=== PATIENT | female | born 1940 | race Caucasian/White ===

== ENCOUNTER 2023-08-14 15:57 | Inpatient (IN) | payer MEDICARE, OTHER ==
[~2023-08-14] VITALS: Ht 170 cm; Wt 63.1 kg
[2023-08-14] MEDS ORDERED: diphenhydrAMINE INJ 50 MG/ML VIAL IVP PRN (16:15)
[2023-08-14] MEDS ORDERED: diphenhydrAMINE 25 MG TABLET PO PRN (16:15)
[2023-08-14] MEDS ORDERED: ACETAMINOPHEN 325 MG TABLET PO PRN (16:15)
[2023-08-14] MEDS ORDERED: MILK OF MAGNESIA 400 MG/5 ML 30 ML UDC PO PRN (16:15)
[2023-08-14] MEDS ORDERED: ONDANSETRON INJECTION 4 MG/2 ML (SDV) IV PRN (16:15)
[2023-08-14] MEDS ORDERED: LORazepam 0.5 MG TABLET PO PRN (16:15)
[2023-08-14] MEDS ORDERED: oxyCODONE IMMEDIATE RELEASE 5 MG TABLET PO PRN (16:15)
[2023-08-14] MEDS ORDERED: BISACODYL 10 MG SUPPOSITORY PR PRN (16:15)
[2023-08-14] MEDS ORDERED: MELATONIN 3 MG TABLET PO PRN (16:15)
[2023-08-14] MEDS ORDERED: ANTACID SUSPENSION 30 ML UDC PO PRN (16:15)
[2023-08-14] MEDS ORDERED: ONDANSETRON 4 MG ORAL DISSOLVE TABLET PO PRN (16:15)
[2023-08-14] MEDS ORDERED: LIDOCAINE UROJET 2% GEL 10 ML PKG TOP ONE (16:15)
[2023-08-14] MEDS ORDERED: LACTULOSE SYRUP 10GM/15ML 30ML UDC PO PRN (16:15)
[2023-08-14] MEDS ORDERED: CALCIUM CARBONATE 500 MG CHEW TABLET PO PRN (16:15)
[2023-08-14] MEDS ORDERED: HALOPERIDOL INJECTION 5 MG/ML VIAL IM PRN (16:15)
--- NOTE | 2023-08-14 16:22 | History & Physical ---
History of Present Illness HPI/Chief Complaint Chief complaint: Left hip fracture HPI: This is an 83-year-old female who I transferred from [facility] where she had been admitted the day before due to increased confusion and agitation with dementia. She has lived with her daughter for 4 years and her dementia had worsened since her cataract surgery. She also had a history of a small stroke 1 week ago. She had remained stable was receiving treatment for her UTI and diarrhea that she originally had had stopped. She suffered a fall while walking in the unit and x-ray was not revealing enough to rule out a fracture so CT scan was done and confirmed the left hip fracture. Orthopedic surgery was consulted and will perform repair tomorrow. I did speak with the daughter on the phone regarding her dementia and needing skilled care afterwards. Source: family, old records Exam Limitations: clinical condition ( confusion with dementia) Date Seen 08/14/23 Time Seen by a Provider: 19:00 Attending Physician PCP Admitting Physician: Gricel Toribio DO Attending Physician: Gricel Toribio DO Referring Physician Date of Admission Home Medications & Allergies Home Medications Reviewed patient Home Medication Reconciliation performed by pharmacy medication reconciliations quality assurance/r&d lab technician and/or nursing. Patients Allergies have been reviewed. Allergies Allergies Coded Allergies No Allergy Information Available (Rxsyiagmzg03/16/23) Past Qottozo-Vgnpmy-Viivjk Hx Past Med/Social Hx: Reviewed Nursing Past Med/Soc Hx, Reviewed and Corrections made Patient Social History Marrital Status: Employed/Student: retired Alcohol Use: Denies Use Smoking Status: Never a Smoker Past Medical History Respiratory: Asthma Cardiac: Hypertension Neurological: Dementia Review of Systems ROS-Unable to Obtain: Confusion Constitutional: see HPI Physical Exam Physical Exam Vital Signs Vital Signs - First Documented 08/14/23 19:25 Temp 36.9 Pulse 76 Resp 20 B/P (MAP) 164/75 (104) Pulse Ox 97 O2 Delivery Room Air Capillary Refill : Height, Weight, BMI Height: '" Weight: lbs. oz. kg; BMI Method: General Appearance: WD/WN, Anxious, Chronically ill, Moderate Distress Respiratory: Lungs Clear, Normal Breath Sounds Cardiovascular: Regular Rate, Rhythm Neurologic/Psychiatric: Alert, Disoriented Results Results/Procedures Labs Laboratory Tests 08/14/23 19:11 Patient resulted labs reviewed. Assessment/Plan Admission Diagnosis Assessment: Left hip fracture sustained in fall Dementia Agitation Recent cataract removal Recent CVA Acute UTI on Cipro Asthma Plan: Pain control Agitation control Proceed on with surgery tomorrow since surgical benefits outweigh medical risk Admission Status: Inpatient Order (span 2 midnights) Reason for Inpatient Admission: Hip fracture Clinical Quality Measures DVT/VTE Risk/Contraindication: Contraindications-Pharm: Other *list below* Other: OR GRICEL TORIBIO DO Aug 14, 2023 16:22
--- OUTSIDE RECORDS SUMMARY | 2023-08-14 18:39 | XMS REPORT | Continuity of Care Document ---
Author Author [facility] Organization [facility] Address Unknown Phone Unavailable Care Team Providers Care Allied Health Professional Name Role Phone Rakan Godfrey PCP Unavailab le Encounter [facility] [id number] Date(s): 03/05/23 - 03/05/23 [place] [id number] [facility] [address] [place], [place] [address] Discharge Disposition: Home or Self Care Attending Physician: Britton Puga Admitting Physician: Britton Puga
[2023-08-14 19:20] LABS: BASOPHILS % (AUTO) 0 % (0-10); EOSINOPHILS % (AUTO) 0 % (0-10); HEMATOCRIT 40 % (35-52); HEMOGLOBIN 13.3 g/dL (11.5-16.0); LYMPHOCYTES # (AUTO) 0.3 10^3/uL (1.0-4.0); LYMPHOCYTES % (AUTO) 3 % (12-44); MEAN CORPUSCULAR HEMOGLOBIN 30 pg (25-34); MEAN CORPUSCULAR HGB CONC 34 g/dL (32-36); MEAN CORPUSCULAR VOLUME 88 fL (80-99); MEAN PLATELET VOLUME 11.6 fL (9.0-12.2); MONOCYTES # (AUTO) 0.5 10^3/uL (0.0-1.0); MONOCYTES % (AUTO) 5 % (0-12); NEUTROPHILS # (AUTO) 8.4 10^3/uL (1.8-7.8); NEUTROPHILS % (AUTO) 91 % (42-75); PLATELET COUNT 188 10^3/uL (130-400); WHITE BLOOD COUNT 9.2 10^3/uL (4.3-11.0)
[2023-08-14 19:25] VITALS: BP 164/75
[2023-08-14 19:38] VITALS: BP 176/78
[2023-08-14 19:41] LABS: ALBUMIN 3.8 GM/DL (3.2-4.5); BILIRUBIN,TOTAL 0.8 MG/DL (0.1-1.0); CALCIUM 9.5 MG/DL (8.5-10.1); CREATININE SERUM 0.77 MG/DL (0.60-1.30); POTASSIUM 3.5 MMOL/L (3.6-5.0); TOTAL PROTEIN 6.7 GM/DL (6.4-8.2)
[2023-08-14] MEDS: NS IV 1000 ML 1,000 ML IV SCH (19:52)
[2023-08-14 19:56] LABS: LYMPHOCYTES % (MANUAL) 5 %; MICROCYTOSIS SLIGHT; MONOCYTES % (MANUAL) 4 %; NEUTROPHILS % (MANUAL) 91 %
[2023-08-14] MEDS: HYDROmorphone INJECTION 2 MG/ML VIAL IV PRN (19:56)
[2023-08-14] MEDS: DOCUSATE SODIUM 100 MG CAPSULE PO SCH (20:02)
[2023-08-14] MEDS: SENNOSIDES 8.6 MG TABLET PO SCH (20:03)
--- NOTE | 2023-08-14 20:36 | Diagnostic Imaging Report ---
HISTORY: Asthma. COMPARISON: None. TECHNIQUE: Frontal view of the chest. FINDINGS: Lung volumes are normal. No consolidation is seen. There is mild central vascular congestion. There is no pleural effusion or pneumothorax. The cardiac silhouette is normal in size. IMPRESSION: Mild central vascular congestion. Dictated by: Dictated on workstation # [id number]
[2023-08-14] MEDS ORDERED: hydrALAZINE INJECTION 20 MG/ML VIAL IV PRN (21:30)
[2023-08-14] MEDS ORDERED: NITROGLYCERIN 2% OINT 1 GM UNIT DOSE PACKET TOP PRN (21:30)
[2023-08-14] MEDS: CIPROFLOXACIN IV 400MG/200ML 200 ML IV SCH (22:28)
[2023-08-14] MEDS: POTASSIUM CL 10MEQ/50ML IVPB 50 ML IV SCH (22:28)
[2023-08-14 22:49] VITALS: BP 176/78
[2023-08-14] MEDS ORDERED: RT-ALBUTEROL SULF 2.5 MG/3 ML PRE-MIX VIAL INH PRN (23:00)
[2023-08-14 23:23] LABS: CLARITY,URINE CLEAR; COLOR,URINE YELLOW; PH,URINE 5.5 (5-9)
[2023-08-14 23:24] LABS: BACTERIA,URINE FEW /HPF; BILIRUBIN,URINE 1+ (NEGATIVE); GLUCOSE, URINE (UA) NEGATIVE (NEGATIVE); HYALINE CASTS, URINE 0-2 /LPF; KETONES,URINE 4+ (NEGATIVE); LEUKOCYTE ESTERASE ,URINE TRACE (NEGATIVE); NITRITE,URINE NEGATIVE (NEGATIVE); PROTEIN,URINE 1+ (NEGATIVE); RBC,URINE 0-2 /HPF
[2023-08-15] MEDS: POTASSIUM CL 10MEQ/50ML IVPB 50 ML IV SCH ×2 (01:34→02:52)
[2023-08-15] MEDS: HYDROmorphone INJECTION 2 MG/ML VIAL IV PRN ×4 (01:34→12:21)
[2023-08-15 03:28] VITALS: BP 126/58
[2023-08-15 05:13] LABS: BASOPHILS % (AUTO) 0 % (0-10); EOSINOPHILS # (AUTO) 0.1 10^3/uL (0.0-0.3); EOSINOPHILS % (AUTO) 1 % (0-10); HEMATOCRIT 39 % (35-52); HEMOGLOBIN 12.7 g/dL (11.5-16.0); LYMPHOCYTES # (AUTO) 0.5 10^3/uL (1.0-4.0); LYMPHOCYTES % (AUTO) 7 % (12-44); MEAN CORPUSCULAR HEMOGLOBIN 30 pg (25-34); MEAN CORPUSCULAR HGB CONC 33 g/dL (32-36); MEAN CORPUSCULAR VOLUME 90 fL (80-99); MEAN PLATELET VOLUME 11.6 fL (9.0-12.2); MONOCYTES # (AUTO) 0.6 10^3/uL (0.0-1.0); MONOCYTES % (AUTO) 9 % (0-12); NEUTROPHILS # (AUTO) 5.9 10^3/uL (1.8-7.8); NEUTROPHILS % (AUTO) 84 % (42-75); PLATELET COUNT 191 10^3/uL (130-400); WHITE BLOOD COUNT 7.1 10^3/uL (4.3-11.0)
[2023-08-15 05:25] LABS: ALBUMIN 3.5 GM/DL (3.2-4.5); POTASSIUM 4.3 MMOL/L (3.6-5.0)
[2023-08-15 05:26] LABS: CALCIUM 8.7 MG/DL (8.5-10.1)
[2023-08-15 05:28] LABS: TOTAL PROTEIN 6.4 GM/DL (6.4-8.2)
[2023-08-15 05:29] LABS: BILIRUBIN,TOTAL 0.7 MG/DL (0.1-1.0)
[2023-08-15 05:31] LABS: CREATININE SERUM 0.74 MG/DL (0.60-1.30)
[2023-08-15] MEDS: NS IV 1000 ML 1,000 ML IV SCH (06:12)
--- NOTE | 2023-08-15 07:29 | CONSULTATION REPORT ---
HISTORY OF PRESENT ILLNESS: The patient is an 83-year-old female with increased confusion and dementia, who was admitted to the [facility] behavioral unit. She apparently fell while walking in the unit. Radiographs were obtained, which revealed a displaced left femoral neck fracture. She was referred here for definitive treatment. PAST MEDICAL HISTORY: Significant for dementia and hypertension. PHYSICAL EXAMINATION: Left lower extremity shortened, internally rotated. She has spontaneous dorsiflexion and plantarflexion of toes with symmetric pulses. IMPRESSION: Closed displaced left femoral neck fracture. PLAN: Left hip bipolar replacement. The risks, benefits, options, ramifications and recovery have been discussed with the patient's daughter. She understands and wishes to proceed. Job ID: [id number] DocumentID: [id number] Dictated Date: 08/15/2023 06:49:11 Candy Separator Enrobing Date: 08/15/2023 07:27:00 Dictated By: BIJAN PITT MD
[2023-08-15 08:12] VITALS: BP 118/59
[2023-08-15] MEDS: DOCUSATE SODIUM 100 MG CAPSULE PO SCH (09:03)
[2023-08-15] MEDS: SENNOSIDES 8.6 MG TABLET PO SCH (09:03)
[2023-08-15] MEDS: CIPROFLOXACIN IV 400MG/200ML 200 ML IV SCH (09:03)
--- NOTE | 2023-08-15 09:40 | Progress Note ---
KARL MOORE 08/15/23 0939: Subjective Date Seen by a Provider: Aug 15, 2023 Time Seen by a Provider: 09:00 Subjective/Events-last exam Ms. Cruz was found sleeping in her bed this morning. She was difficult to awake, as she was recently given dilaudid. She was able to report that she had no pain currently, but was unable to stay awake long enough for further questioning. Per nurse, she had been desatting into the low 80s and was placed on 2L NC. Since then her O2 sats have slowly been improving and most recently was 93%. UA overnight showed 4+ ketones, 5-10 WBC, and few bacteria. She has been started on IV ciprofloxacin. Chest XR showed mild central vascular congesti on. She has a history of recent CVA and dementia. Objective Exam Last Set of Vital Signs Vital Signs Date Time Temp Pulse Resp B/P (MAP) Pulse Ox O2 Delivery O2 Flow Rate FiO2 08/15/23 08:12 37.0 107 17 118/59 (78) 93 Nasal Cannula 2.00 08/14/23 22:49 21 Capillary Refill : I&O Intake and Output 08/15/23 00:00 Intake Total 0 ml Output Total 125 ml Balance -125 ml Intake Oral 0 ml Output Urine Total 125 ml Daily Weight Change Yes, 14-23 lbs General: No Acute Distress HEENT: Atraumatic, EOMI Neck: Supple Lungs: Clear to Auscultation, Normal Air Movement Heart: No Murmurs Abdomen: Normal Bowel Sounds, Soft Extremities: No Cyanosis, Normal Pulses Skin: No Rashes Neuro: Normal Speech Results Lab Laboratory Tests 08/14/23 19:11: White Blood Count 9.2, Red Blood Count 4.49, Hemoglobin 13.3, Hematocrit 40, Mean Corpuscular Volume 88, Mean Corpuscular Hemoglobin 30, Mean Corpuscular Hemoglobin Concent 34, Red Cell Distribution Width 12.4, Platelet Count 188, Mean Platelet Volume 11.6, Immature Granulocyte % (Auto) 0, Neutrophils (%) (Auto) 91H, Lymphocytes (%) (Auto) 3L, Monocytes (%) (Auto) 5, Eosinophils (%) (Auto) 0, Basophils (%) (Auto) 0, Neutrophils # (Auto) 8.4H, Lymphocytes # (Auto) 0.3L, Monocytes # (Auto) 0.5, Eosinophils # (Auto) 0.0, Basophils # (Auto) 0.0, Immature Granulocyte # (Auto) 0.0, Neutrophils % (Manual) 91, Lymphocytes % (Manual) 5, Monocytes % (Manual) 4, Microcytosis SLIGHT, Sodium Level 137, Potassium Level 3.5L, Chloride Level 103, Carbon Dioxide Level 16L, Anion Gap 18H, Blood Urea Nitrogen 8, Creatinine 0.77, Estimat Glomerular Filtration Rate 76, BUN/Creatinine Ratio 10, Glucose Level 132H, Calcium Level 9.5, Corrected Calcium 9.7, Total Bilirubin 0.8, Aspartate Amino Transf (AST/SGOT) 29, Alanine Aminotransferase (ALT/SGPT) 17, Alkaline Phosphatase 90, Total Protein 6.7, Albumin 3.8 08/14/23 20:50: Urine Color YELLOW, Urine Clarity CLEAR, Urine pH 5.5, Urine Specific [place] 1.025H, Urine Protein 1+H, Urine Glucose (UA) NEGATIVE, Urine Ketones 4+H, Urine Nitrite NEGATIVE, Urine Bilirubin 1+H, Urine Urobilinogen 0.2, Urine Leukocyte Esterase TRACEH, Urine RBC (Auto) NEGATIVE, Urine RBC 0-2, Urine WBC 5-10H, Urine Crystals NONE, Urine Bacteria FEWH, Urine Casts PRESENT, Urine Hyaline Casts 0-2H, Urine Mucus LARGEH, Urine Culture Indicated YES 08/15/23 04:47: White Blood Count 7.1, Red Blood Count 4.26, Hemoglobin 12.7, Hematocrit 39, Mean Corpuscular Volume 90, Mean Corpuscular Hemoglobin 30, Mean Corpuscular Hemoglobin Concent 33, Red Cell Distribution Width 12.6, Platelet Count 191, Mean Platelet Volume 11.6, Immature Granulocyte % (Auto) 0, Neutrophils (%) (Auto) 84H, Lymphocytes (%) (Auto) 7L, Monocytes (%) (Auto) 9, Eosinophils (%) (Auto) 1, Basophils (%) (Auto) 0, Neutrophils # (Auto) 5.9, Lymphocytes # (Auto) 0.5L, Monocytes # (Auto) 0.6, Eosinophils # (Auto) 0.1, Basophils # (Auto) 0.0, Immature Granulocyte # (Auto) 0.0, Sodium Level 135, Potassium Level 4.3, Chloride Level 106, Carbon Dioxide Level 20L, Anion Gap 9, Blood Urea Nitrogen 6L, Creatinine 0.74, Estimat Glomerular Filtration Rate 80, BUN/Creatinine Ratio 8, Glucose Level 115H, Calcium Level 8.7, Corrected Calcium 9.1, Total Bilirubin 0.7, Aspartate Amino Transf (AST/SGOT) 30, Alanine Aminotransferase (ALT/SGPT) 16, Alkaline Phosphatase 83, Total Protein 6.4, Albumin 3.5 Assessment/Plan Assessment/Plan Assess & Plan/Chief Complaint Assessment: Ms. Cruz is an 83 y/o female with Left displaced femoral neck fracture and UTI Plan: L Femoral Neck Fx -Dr. Delgado to operated this afternoon -pain meds prn -supportive measures UTI -UA showed 5-10 WBC, few bacteria -IV ciprofloxacin -Urine culture pending -monitor WBC/labs Clinical Quality Measures DVT/VTE Risk/Contraindication: Contraindications-Pharm: Other *list below* Other: OR GRICEL SILVEIRA DO 08/16/23 0600: Subjective Subjective/Events-last exam Patient declining Decision was made after rounds with orthopedic surgery and daughter to make her comfort care and discharged home on hospice Objective Exam General: Other (Altered mental status) Lungs: Clear to Auscultation Assessment/Plan Assessment/Plan Assess & Plan/Chief Complaint Discharge on hospice tomorrow Comfort care orders Supervisory-Addendum Brief Verification & Attestation Participated in pt care: history, MDM, physical Personally performed: exam, history, MDM, supervision of care Care discussed with: Medical Student Procedures: n/a Results interpretation: Verified all documentation Verification and Attestation of Medical Student E/M Service A medical student performed and documented this service in my presence. I reviewed and verified all information documented by the medical student and made modifications to such information, when appropriate. I personally performed the physical exam and medical decision making. Gricel Silveira Aug 16, 2023,05:59 KARL MOORE Aug 15, 2023 09:39 GRICEL SILVEIRA DO Aug 16, 2023 06:00
[2023-08-15 12:23] VITALS: BP 131/78
[2023-08-15] MEDS ORDERED: LACTATED RINGERS 1,000 ML 1,000 ML IV PRN (13:00)
[2023-08-15] MEDS ORDERED: ESCI-2 PO (13:46)
[2023-08-15] MEDS ORDERED: FLUT1BLS9 INH (13:46)
[2023-08-15] MEDS ORDERED: HYDR-3584 PO (13:46)
[2023-08-15] MEDS ORDERED: BUSP5TAB59 PO (13:46)
[2023-08-15] MEDS ORDERED: QUET25TA35 PO (13:46)
[2023-08-15] MEDS ORDERED: TRZ50T PO (13:46)
[2023-08-15] MEDS ORDERED: IPRA3AMP31 NEB (13:46)
--- NOTE | 2023-08-15 14:04 | CONSULTATION REPORT ---
I had a long discussion with the patient's daughter. The patient has new onset atrial fibrillation. The daughter is concerned about her ability to withstand the stresses of surgery. She would like to keep the patient comfortable and has elected to proceed with hospice care with transfer to home. We discussed surgical options and expectations. I have relayed this information to Dr. Toribio. Job ID: [id number] DocumentID: [id number] Dictated Date: 08/15/2023 13:49:00 Critical Care Technician Date: 08/15/2023 14:02:00 Dictated By: BIJAN PITT MD
[2023-08-15] MEDS ORDERED: ARTIFICIAL TEARS Ophth solution 0.4 ML UNIT DOSE OU PRN (14:15)
[2023-08-15] MEDS ORDERED: RT-Ipratropium/Albuterol NEB 3 ML VIAL INH PRN (14:15)
[2023-08-15] MEDS ORDERED: ONDANSETRON INJECTION 4 MG/2 ML (SDV) IVP PRN (14:15)
[2023-08-15] MEDS ORDERED: PROMETHAZINE INJ 25 MG/ML VIAL IVP PRN (14:15)
[2023-08-15] MEDS ORDERED: ATROPINE 1% OPHTHALMIC SOLN 2 ML SL PRN (14:15)
[2023-08-15] MEDS ORDERED: ACETAMINOPHEN 650 MG SUPPOSITORY PR PRN (14:15)
[2023-08-15] MEDS ORDERED: GLYCOPYRROLATE INJ 0.2 MG/ML 2 ML VIAL IV PRN (14:15)
[2023-08-15] MEDS ORDERED: SALIVA SUBSTITUTE 236 ML SPRAY MM PRN (14:15)
[2023-08-15] MEDS ORDERED: BISACODYL 10 MG SUPPOSITORY PR PRN (14:15)
[2023-08-15] MEDS ORDERED: SCOPOLAMINE 1.5 MG PATCH TOP SCH (14:30)
[2023-08-15] MEDS: LORazepam 1 MG TABLET SL PRN ×2 (15:57→20:35)
[2023-08-15] MEDS ORDERED: ceFAZolin INJECTION 2,000 MG in NS (IVPB) 50 ML 50 ML IV ONE (16:00)
[2023-08-15 16:48] VITALS: BP 146/75
[2023-08-15] MEDS: morphine INJ 4 MG/ML 1 ML (VIAL/SYRINGE) IV PRN (20:36)
[2023-08-16] MEDS: LORazepam 1 MG TABLET SL PRN (02:23)
[2023-08-16] MEDS: morphine INJ 4 MG/ML 1 ML (VIAL/SYRINGE) IV PRN ×2 (02:24→11:08)
[2023-08-16] MEDS ORDERED: LORA2ORA PO (10:38)
[2023-08-16] MEDS ORDERED: MORP100S7 PO (10:38)
--- NOTE | 2023-08-16 10:41 | Discharge Summary ---
Diagnosis/Chief Complaint Date of Admission Aug 14, 2023 at 18:30 Date of Discharge Discharge Date: Aug 16, 2023 Discharge Diagnosis Severe decline of status shifted to comfort care Left hip fracture Severe dementia with rapid progression Recent CVA Recent UTI Discharge Summary Discharge Physical Examination Allergies: Coded Allergies: No Known Drug Allergies (Unverified , 08/14/23) Vitals & I&Os Vital Signs Date Time Temp Pulse Resp B/P (MAP) Pulse Ox O2 Delivery O2 Flow Rate FiO2 08/16/23 08:00 Room Air 08/15/23 18:47 103 08/15/23 16:48 37.0 18 146/75 (98) 95 2.00 08/14/23 22:49 21 General Appearance: Other (confused, chronically ill) Hospital Course Was the Problem List Reviewed?: Yes Short course after I moved her from [facility] to [facility] due to fall and subsequent left hip fracture which required CT to identify. Patient had rapidly progressive dementia with severe debility and cognitive decline and [place] spoke to daughter and the decision was made to place her on comfort care and not proceed on with the repair and due to her poor half-way prognosis so she was placed on Hospice and transferred to her home on hospice. Labs (last 24 hrs) Laboratory Tests 08/14/23 19:11: White Blood Count 9.2, Red Blood Count 4.49, Hemoglobin 13.3, Hematocrit 40, Mean Corpuscular Volume 88, Mean Corpuscular Hemoglobin 30, Mean Corpuscular Hemoglobin Concent 34, Red Cell Distribution Width 12.4, Platelet Count 188, Mean Platelet Volume 11.6, Immature Granulocyte % (Auto) 0, Neutrophils (%) (Auto) 91H, Lymphocytes (%) (Auto) 3L, Monocytes (%) (Auto) 5, Eosinophils (%) (Auto) 0, Basophils (%) (Auto) 0, Neutrophils # (Auto) 8.4H, Lymphocytes # (Auto) 0.3L, Monocytes # (Auto) 0.5, Eosinophils # (Auto) 0.0, Basophils # (Auto) 0.0, Immature Granulocyte # (Auto) 0.0, Neutrophils % (Manual) 91, Lymphocytes % (Manual) 5, Monocytes % (Manual) 4, Microcytosis SLIGHT, Sodium Level 137, Potassium Level 3.5L, Chloride Level 103, Carbon Dioxide Level 16L, Anion Gap 18H, Blood Urea Nitrogen 8, Creatinine 0.77, Estimat Glomerular Filtration Rate 76, BUN/Creatinine Ratio 10, Glucose Level 132H, Calcium Level 9.5, Corrected Calcium 9.7, Total Bilirubin 0.8, Aspartate Amino Transf (AST/SGOT) 29, Alanine Aminotransferase (ALT/SGPT) 17, Alkaline Phosphatase 90, Total Protein 6.7, Albumin 3.8 08/14/23 20:50: Urine Color YELLOW, Urine Clarity CLEAR, Urine pH 5.5, Urine Specific [place] 1.025H, Urine Protein 1+H, Urine Glucose (UA) NEGATIVE, Urine Ketones 4+H, Urine Nitrite NEGATIVE, Urine Bilirubin 1+H, Urine Urobilinogen 0.2, Urine Leukocyte Esterase TRACEH, Urine RBC (Auto) NEGATIVE, Urine RBC 0-2, Urine WBC 5-10H, Urine Crystals NONE, Urine Bacteria FEWH, Urine Casts PRESENT, Urine Hyaline Casts 0-2H, Urine Mucus LARGEH, Urine Culture Indicated YES 08/15/23 04:47: White Blood Count 7.1, Red Blood Count 4.26, Hemoglobin 12.7, Hematocrit 39, Mean Corpuscular Volume 90, Mean Corpuscular Hemoglobin 30, Mean Corpuscular Hemoglobin Concent 33, Red Cell Distribution Width 12.6, Platelet Count 191, Mean Platelet Volume 11.6, Immature Granulocyte % (Auto) 0, Neutrophils (%) (Auto) 84H, Lymphocytes (%) (Auto) 7L, Monocytes (%) (Auto) 9, Eosinophils (%) (Auto) 1, Basophils (%) (Auto) 0, Neutrophils # (Auto) 5.9, Lymphocytes # (Auto) 0.5L, Monocytes # (Auto) 0.6, Eosinophils # (Auto) 0.1, Basophils # (Auto) 0.0, Immature Granulocyte # (Auto) 0.0, Sodium Level 135, Potassium Level 4.3, Chloride Level 106, Carbon Dioxide Level 20L, Anion Gap 9, Blood Urea Nitrogen 6L, Creatinine 0.74, Estimat Glomerular Filtration Rate 80, BUN/Creatinine Ratio 8, Glucose Level 115H, Calcium Level 8.7, Corrected Calcium 9.1, Total Bilirubin 0.7, Aspartate Amino Transf (AST/SGOT) 30, Alanine Aminotransferase (ALT/SGPT) 16, Alkaline Phosphatase 83, Total Protein 6.4, Albumin 3.5 Microbiology 08/14/23 Urine Culture - Final, Complete NO GROWTH 08/14/23 MRSA Screen - Final, Complete Pending Labs Microbiology Date/Time Source Procedure Growth Status 08/14/23 20:50 Urine Not Otherwise Specified Urine Culture - Final NO GROWTH Complete 08/14/23 20:50 Nasal MRSA Screen - Final Complete Laboratory Tests 08/14/23 19:11: White Blood Count 9.2, Red Blood Count 4.49, Hemoglobin 13.3, Hematocrit 40, Mean Corpuscular Volume 88, Mean Corpuscular Hemoglobin 30, Mean Corpuscular Hemoglobin Concent 34, Red Cell Distribution Width 12.4, Platelet Count 188, Mean Platelet Volume 11.6, Immature Granulocyte % (Auto) 0, Neutrophils (%) (Auto) 91, Lymphocytes (%) (Auto) 3, Monocytes (%) (Auto) 5, Eosinophils (%) (Auto) 0, Basophils (%) (Auto) 0, Neutrophils # (Auto) 8.4, Lymphocytes # (Auto) 0.3, Monocytes # (Auto) 0.5, Eosinophils # (Auto) 0.0, Basophils # (Auto) 0.0, Immature Granulocyte # (Auto) 0.0, Neutrophils % (Manual) 91, Lymphocytes % (Manual) 5, Monocytes % (Manual) 4, Microcytosis SLIGHT, Sodium Level 137, Potassium Level 3.5, Chloride Level 103, Carbon Dioxide Level 16, Anion Gap 18, Blood Urea Nitrogen 8, Creatinine 0.77, Estimat Glomerular Filtration Rate 76, BUN/Creatinine Ratio 10, Glucose Level 132, Calcium Level 9.5, Corrected Calcium 9.7, Total Bilirubin 0.8, Aspartate Amino Transf (AST/SGOT) 29, Alanine Aminotransferase (ALT/SGPT) 17, Alkaline Phosphatase 90, Total Protein 6.7, Albumin 3.8 08/14/23 20:50: Urine Color YELLOW, Urine Clarity CLEAR, Urine pH 5.5, Urine Specific [place] 1.025, Urine Protein 1+, Urine Glucose (UA) NEGATIVE, Urine Ketones 4+, Urine Nitrite NEGATIVE, Urine Bilirubin 1+, Urine Urobilinogen 0.2, Urine Leukocyte Esterase TRACE, Urine RBC (Auto) NEGATIVE, Urine RBC 0-2, Urine WBC 5-10, Urine Crystals NONE, Urine Bacteria FEW, Urine Casts PRESENT, Urine Hyaline Casts 0-2, Urine Mucus LARGE, Urine Culture Indicated YES 08/15/23 04:47: White Blood Count 7.1, Red Blood Count 4.26, Hemoglobin 12.7, Hematocrit 39, Mean Corpuscular Volume 90, Mean Corpuscular Hemoglobin 30, Mean Corpuscular Hemoglobin Concent 33, Red Cell Distribution Width 12.6, Platelet Count 191, Mean Platelet Volume 11.6, Immature Granulocyte % (Auto) 0, Neutrophils (%) (Auto) 84, Lymphocytes (%) (Auto) 7, Monocytes (%) (Auto) 9, Eosinophils (%) (Auto) 1, Basophils (%) (Auto) 0, Neutrophils # (Auto) 5.9, Lymphocytes # (Auto) 0.5, Monocytes # (Auto) 0.6, Eosinophils # (Auto) 0.1, Basophils # (Auto) 0.0, Immature Granulocyte # (Auto) 0.0, Sodium Level 135, Potassium Level 4.3, Chloride Level 106, Carbon Dioxide Level 20, Anion Gap 9, Blood Urea Nitrogen 6, Creatinine 0.74, Estimat Glomerular Filtration Rate 80, BUN/Creatinine Ratio 8, Glucose Level 115, Calcium Level 8.7, Corrected Calcium 9.1, Total Bilirubin 0.7, Aspartate Amino Transf (AST/SGOT) 30, Alanine Aminotransferase (ALT/SGPT) 16, Alkaline Phosphatase 83, Total Protein 6.4, Albumin 3.5 Discharge Home Medications: Active Scripts Active Lorazepam Intensol (Lorazepam) 2 Mg/Ml Oral.conc 1 Mg PO Q2H PRN Morphine Conc. 20mg/ml (Morphine Sulfate) 100 Mg/5 Ml (20 Mg/Ml) Solution 10 Mg PO Q2H PRN Instructions to patient/family Please see electronic discharge instructions given to patient. Clinical Quality Measures DVT/VTE Risk/Contraindication: Contraindications-Pharm: Other *list below* Other: OR SHELBY SILVEIRA DO Aug 16, 2023 10:41
--- NOTE | 2023-08-16 11:39 | Progress Note ---
Subjective Date Seen by a Provider: Aug 16, 2023 Objective Exam Last Set of Vital Signs Vital Signs Date Time Temp Pulse Resp B/P (MAP) Pulse Ox O2 Delivery O2 Flow Rate FiO2 08/16/23 08:00 Room Air 08/15/23 18:47 103 08/15/23 16:48 37.0 18 146/75 (98) 95 2.00 08/14/23 22:49 21 Capillary Refill : I&O Intake and Output 08/15/23 23:59 Intake Total 50 ml Output Total 325 ml Balance -275 ml Intake Oral 50 ml Output Urine Total 325 ml Results Lab Microbiology 08/14/23 Urine Culture - Final, Complete NO GROWTH 08/14/23 MRSA Screen - Final, Complete Assessment/Plan Assessment/Plan Assess & Plan/Chief Complaint Discharge on hospice tomorrow Comfort care orders Clinical Quality Measures DVT/VTE Risk/Contraindication: Contraindications-Pharm: Other *list below* Other: OR SHELBY SILVEIRA DO Aug 16, 2023 11:39
[2023-08-16] MEDS ORDERED: morphine ORAL concentrate 10 MG/0.5 ML PO PRN (14:00)
[2023-08-18] MEDS ORDERED: SCOPOLAMINE PATCH REMOVAL TP SCH (14:29)
== END 2023-08-16 15:04 | disposition hospice, home (50) | DRG 536 ==
LOC: 4TH 18:30
PROVIDERS: ADMIT Internal Medicine; ATTEND Internal Medicine
DX: S72.002A Fracture of unspecified part of neck of left femur, initial encounter for closed fracture (principal); F03.C11 Unspecified dementia, severe, with agitation; F05 Delirium due to known physiological condition; N39.0 Urinary tract infection, site not specified; I48.91 Unspecified atrial fibrillation; I10 Essential (primary) hypertension; J45.909 Unspecified asthma, uncomplicated; Z66 Do not resuscitate; Z51.5 Encounter for palliative care; Z86.73 Personal history of transient ischemic attack (TIA), and cerebral infarction without residual deficits
CPT/HCPCS: 36415; 71045; 80053; 81000; 85007; 85025; 85027; 87081; 87088; 93005